=== PATIENT | male | born 1990 | race Caucasian/White ===

== ENCOUNTER 2016-11-14 15:37 | Emergency (ER) | payer OTHER ==
[~2016-11-14] VITALS: Ht 165.1 cm; Wt 86.0 kg
[~2016-11-14 15:37] MED LIST: AMBIEN CR12.5 MG PO; AMBIEN10 MG PO; AMBIEN5 MG PO; ATARAX,VISTARIL25 MG PO; ATARAX,VISTARIL50 MG; ATARAX,VISTARIL50 MG PO; CATAPRES-TTS 11 EACH TD; CATAPRES0.1 MG PO; CLONIDINE HCL0.1 MG PO; CLONIDINE HCL0.2 MG PO; CYCLOBENZAPRINE10 MG PO; DESYREL 150 MG150 MG PO; EFFEXOR XR150 MG PO; EFFEXOR50 MG PO; FLEXERIL10 MG PO; HYDROCODON-ACE1 EAC9 PO; HYDROXYZINE HCL50 MG PO; INDOCIN25 MG PO; KEFLEX500 MG PO; LEVAQUIN500 MG PO; METHADONE1 MG/1 ML PO; METHADOSE10 MG PO; MOTRIN600 MG PO; MOTRIN800 MG PO; NAPROSYN500 MG PO; NAPROXEN500 MG PO; NORCO 10/3251 TABLET PO; NORCO 5/3251 TABLET PO; OXYCODONE-APAP1 EACH PO; PERCOCET 5/31 TABLET PO; PHENERGAN-CODE120 ML PO; PREDNISONE20 MG PO; ROBITUSSIN AC,T10 ML PO; ROZEREM8 MG PO; SEROQUEL100 MG PO; SKELAXIN800 MG PO; SLEEP AID25 M1 PO; SOMA250 MG PO; TOPICAINE113 GM TP; TOPIRAMATE25 MG PO; TRAMADOL HCL50 MG PO; TRAZODONE HCL50 MG PO; TYLENOL WITH C1 EACH PO; ULTRAM50 MG PO; VALIUM5 MG PO; VENLAFAXINE HC150 M1 PO; VENTOLIN HFA18 GM IH; VISTARIL50 MG PO; ZITHROMAX Z-PA250 MG PO; ZOFRAN ODT4 MG PO; ZOLOFT50 MG PO; ZOLPIDEM TARTRA10 MG PO; ambien; effexor; percocet
[2016-11-14 19:12] VITALS: BP 136/111
== END 2016-11-14 19:13 | disposition home or self-care (01) ==
LOC: EME 15:37
DX: F41.9 Anxiety disorder, unspecified (principal); I10 Essential (primary) hypertension; M79.645 Pain in left finger(s); G89.29 Other chronic pain; Z79.891 Long term (current) use of opiate analgesic; F17.200 Nicotine dependence, unspecified, uncomplicated; F32.9 Major depressive disorder, single episode, unspecified
CPT/HCPCS: 90839; 99281; 99284

== ENCOUNTER 2016-12-27 23:32 | Emergency (ER) | payer OTHER ==
[~2016-12-27] VITALS: Ht 165.1 cm; Wt 85.5 kg
[2016-12-27 23:37] VITALS: BP 154/106
== END 2016-12-28 01:53 | disposition left against medical advice (07) ==
LOC: EME 23:32
DX: M79.645 Pain in left finger(s) (principal); G89.29 Other chronic pain; F32.9 Major depressive disorder, single episode, unspecified; F17.200 Nicotine dependence, unspecified, uncomplicated
CPT/HCPCS: 90839; 99281; 99283

== ENCOUNTER 2016-12-29 23:56 | Emergency (ER) | payer OTHER ==
[~2016-12-29] VITALS: Ht 165.1 cm; Wt 95.3 kg
[2016-12-30 00:01] VITALS: BP 176/96
== END 2016-12-30 01:20 | disposition left against medical advice (07) ==
LOC: EME 23:56
DX: M79.646 Pain in unspecified finger(s) (principal); Z53.21 Procedure and treatment not carried out due to patient leaving prior to being seen by health care provider
CPT/HCPCS: 93005

== ENCOUNTER 2017-01-09 20:27 | Emergency (ER) | payer OTHER ==
[~2017-01-09] VITALS: Ht 165.1 cm; Wt 83.5 kg
[2017-01-09] MEDS ORDERED: MOTRIN600 MG PO (22:38)
[2017-01-09 23:45] VITALS: BP 121/79
== END 2017-01-09 23:46 | disposition home or self-care (01) ==
LOC: EME 20:27
DX: S30.810A Abrasion of lower back and pelvis, initial encounter (principal); S50.311A Abrasion of right elbow, initial encounter; S80.211A Abrasion, right knee, initial encounter; S50.811A Abrasion of right forearm, initial encounter; V89.2XXA Person injured in unspecified motor-vehicle accident, traffic, initial encounter; F17.200 Nicotine dependence, unspecified, uncomplicated; F11.21 Opioid dependence, in remission
CPT/HCPCS: 72170; 73080; 73564; 99281; 99285; J1885; J3010

== ENCOUNTER 2017-01-11 18:17 | Emergency (ER) | payer OTHER ==
[~2017-01-11] VITALS: Ht 165.1 cm; Wt 82.4 kg
[2017-01-11] MEDS ORDERED: FARESTON60 MG PO (18:36)
[2017-01-11] MEDS ORDERED: TORADOL10 MG PO (18:43)
[2017-01-11 19:31] VITALS: BP 145/98
== END 2017-01-11 19:31 | disposition home or self-care (01) ==
LOC: EME 18:17
DX: S40.811A Abrasion of right upper arm, initial encounter (principal); S70.211A Abrasion, right hip, initial encounter; S70.311A Abrasion, right thigh, initial encounter; S80.811A Abrasion, right lower leg, initial encounter
CPT/HCPCS: 99281; 99284; J1885

== ENCOUNTER 2017-01-25 13:55 | Emergency (ER) | payer OTHER ==
[~2017-01-25] VITALS: Ht 165.1 cm; Wt 84.0 kg
[~2017-01-25 13:55] MED LIST changes: +FARESTON60 MG PO; +TORADOL10 MG PO
[2017-01-25 16:02] VITALS: BP 114/61
== END 2017-01-25 16:01 | disposition home or self-care (01) ==
LOC: EME 13:55
DX: S50.852A Superficial foreign body of left forearm, initial encounter (principal); W45.8XXA Other foreign body or object entering through skin, initial encounter; F17.200 Nicotine dependence, unspecified, uncomplicated
CPT/HCPCS: 73090; 99281; 99283

== ENCOUNTER 2017-03-02 08:58 | Emergency (ER) | payer OTHER ==
[~2017-03-02] VITALS: Ht 165.1 cm; Wt 79.0 kg
[2017-03-02 09:22] VITALS: BP 154/111
[2017-03-02] MEDS ORDERED: ATARAX,VISTARIL50 MG PO ×2 (09:47→10:43)
[2017-03-02] MEDS ORDERED: DIAZEPAM5 MG PO (09:48)
[2017-03-02] MEDS ORDERED: VENLAFAXINE HC150 M1 PO (09:48)
[2017-03-02] MEDS ORDERED: AMBIEN5 MG PO (10:43)
== END 2017-03-02 10:53 | disposition home or self-care (01) ==
LOC: EME 08:58
DX: Z76.0 Encounter for issue of repeat prescription (principal); I10 Essential (primary) hypertension; F17.200 Nicotine dependence, unspecified, uncomplicated
CPT/HCPCS: 99281; 99283

== ENCOUNTER 2017-03-06 17:25 | Emergency (ER) | payer OTHER ==
[~2017-03-06] VITALS: Ht 165.1 cm; Wt 80.3 kg
[~2017-03-06 17:25] MED LIST changes: +DIAZEPAM5 MG PO
[2017-03-06] MEDS ORDERED: ATARAX,VISTARIL50 MG PO (18:45)
[2017-03-06] MEDS ORDERED: AMBIEN5 MG PO (18:45)
[2017-03-06 18:59] VITALS: BP 157/97
[2017-03-07] MEDS ORDERED: LIBRIUM25 MG PO (03:18)
== END 2017-03-06 19:00 | disposition home or self-care (01) ==
LOC: EME 17:25
DX: Z76.0 Encounter for issue of repeat prescription (principal); G89.29 Other chronic pain; M79.645 Pain in left finger(s); F41.9 Anxiety disorder, unspecified; Z87.898 Personal history of other specified conditions; F17.200 Nicotine dependence, unspecified, uncomplicated
CPT/HCPCS: 99281; 99283

== ENCOUNTER 2017-03-07 02:43 | Emergency (ER) | payer OTHER ==
[~2017-03-07] VITALS: Ht 165.1 cm; Wt 80.4 kg
[2017-03-07] MEDS ORDERED: LIBRIUM25 MG PO (03:18)
[2017-03-07 03:43] VITALS: BP 144/103
== END 2017-03-07 03:45 | disposition home or self-care (01) ==
LOC: EME 02:43
DX: G47.00 Insomnia, unspecified (principal); J45.909 Unspecified asthma, uncomplicated; F90.9 Attention-deficit hyperactivity disorder, unspecified type; F17.200 Nicotine dependence, unspecified, uncomplicated
CPT/HCPCS: 99281; 99284

== ENCOUNTER 2017-04-27 21:34 | Inpatient (IN) | payer OTHER ==
[~2017-04-27] VITALS: Ht 165.1 cm; Wt 76.8 kg
[~2017-04-27 21:34] MED LIST changes: +LIBRIUM25 MG PO
[2017-04-27 22:54] LABS: HEMATOCRIT 40.2 % (38.0-50.0); MCH 27.2 PG (29.0-34.0); MCHC 34.3 G/DL (30.0-36.0); MCV 79.1 FL (86-99); MEAN PLAT.VOLUME 8.4 uM^3 (9.0-12.4); PLATELET COUNT 368 K/uL (156-360); RBC DIS.WIDTH-SD 39.8 % (39-53); RED BLOOD COUNT 5.08 M/uL (4.00-5.50); WHITE BLOOD COUNT 12.6 K/uL (4.1-10.2)
[2017-04-27 23:03] LABS: CHLORIDE 105 mEq/L (99-109); POTASSIUM 3.2 mEq/L (3.7-5.4); SODIUM 144 mEq/L (136-147)
[2017-04-27 23:05] LABS: GLUCOSE 97 mg/dL (70-99)
[2017-04-27 23:06] LABS: ANION GAP 16 MEQ/L (2-14)
[2017-04-27 23:07] LABS: TOTAL BILIRUBIN 0.5 mg/dL (0.0-1.0)
[2017-04-27 23:08] LABS: SERUM ETHYL ALCOHOL < 10 mg/dL
[2017-04-27 23:09] LABS: ALKALINE PHOSPHATASE 74 IU/L (3-129); GFR ESTIMATE (CALCULATED) > 59 mL/min/
[2017-04-27 23:10] LABS: UREA NITROGEN (BUN) 10 mg/dL (9-23)
[2017-04-27 23:39] LABS: ADD MIUA? YES; BILIRUBIN NEGATIVE; BLOOD NEGATIVE; COLOR YELLOW ((YELLOW)); GLUCOSE (STRIP) 50; KETONES 20; LEUKOCYTES NEGATIVE; NITRITE NEGATIVE; PROTEIN (STRIP) 30; SPECIFIC GRAVITY 1.014 (1.000-1.030)
[2017-04-27 23:45] LABS: ADD MEDTOX COMMENT Y; AMPHETAMINE NEGATIVE (500 ng/mL); BACTERIA RARE /HPF; BARBITURATES NEGATIVE (200 ng/mL); BENZODIAZEPINES PRESUMPTIVE POSITIVE (150 ng/mL); COCAINE NEGATIVE (150 ng/mL); EPITHELIAL CELLS NONE SEEN /HPF; INTERNAL CONTROLS VALID? YES; METHADONE NEGATIVE (200 ng/mL); METHAMPHETAMINE NEGATIVE (500 ng/mL); MUCUS 2+ /LPF; OPIATES (MORPHINE) NEGATIVE (100 ng/mL); OXYCODONE NEGATIVE (100 ng/mL); PHENCYCLIDINE NEGATIVE (25 ng/mL); PROPOXYPHENE NEGATIVE (300 ng/mL); RED BLOOD CELLS 0-5 /HPF (0-5); THC CANNABINOIDS PRESUMPTIVE POSITIVE (50 ng/mL); TRICYCLIC ANTIDEPRESSANTS NEGATIVE (300 ng/mL); UCUL ADDED? NO; WHITE BLOOD CELLS 0-5 /HPF (0-5)
[2017-04-28 00:32] LABS: BENZODIAZEPINES, URINE SCREEN POSITIVE (200 ng/mL)
[2017-04-28 00:50] VITALS: BP 142/92
[2017-04-28 07:49] VITALS: BP 107/62
[2017-04-28 15:38] VITALS: BP 119/80
[2017-04-29 07:28] VITALS: BP 123/68
[2017-04-29 15:42] VITALS: BP 136/79
[2017-04-30 07:47] VITALS: BP 108/67
[2017-04-30 15:59] VITALS: BP 145/97
[2017-05-01 07:51] VITALS: BP 131/82
[2017-05-01] MEDS ORDERED: DIAZEPAM5 MG PO (09:43)
[2017-05-01] MEDS ORDERED: HYDROXYZINE PAM50 MG PO (09:43)
[2017-05-01] MEDS ORDERED: VENLAFAXINE HC150 M1 PO (09:43)
== END 2017-05-01 11:30 | disposition home or self-care (01) | DRG 885 ==
LOC: EME 21:34 → 1WEST 23:41 → EDOF 23:41 → 1WEST 04-28 00:40
PROVIDERS: Emergency Medicine
DX: F33.1 Major depressive disorder, recurrent, moderate (principal); F11.20 Opioid dependence, uncomplicated; F12.10 Cannabis abuse, uncomplicated; R45.851 Suicidal ideations; I10 Essential (primary) hypertension; F41.1 Generalized anxiety disorder; Z81.8 Family history of other mental and behavioral disorders; Z82.79 Family history of other congenital malformations, deformations and chromosomal abnormalities
CPT/HCPCS: 80053; 81003; 84999; 85027; 90839; 97150 GO; 97165 GO; 99281; 99285; G0480; Q0177

== ENCOUNTER 2017-11-03 10:34 | Emergency (ER) | payer OTHER ==
[~2017-11-03] VITALS: Ht 165.1 cm; Wt 78.5 kg
[~2017-11-03 10:34] MED LIST changes: +HYDROXYZINE PAM50 MG PO
[2017-11-03 11:05] VITALS: BP 143/100
== END 2017-11-03 13:35 | disposition left against medical advice (07) ==
LOC: EME 10:34
DX: F19.230 Other psychoactive substance dependence with withdrawal, uncomplicated (principal); Z53.21 Procedure and treatment not carried out due to patient leaving prior to being seen by health care provider

== ENCOUNTER 2018-03-28 17:18 | Emergency (ER) | payer OTHER ==
[~2018-03-28] VITALS: Ht 165.1 cm; Wt 72.4 kg
[2018-03-28] MEDS ORDERED: KEFLEX500 MG PO (17:51)
[2018-03-28] MEDS ORDERED: XANAX0.25 MG PO (18:33)
[2018-03-28 19:15] VITALS: BP 140/98
== END 2018-03-28 19:17 | disposition home or self-care (01) ==
LOC: EME 17:18
DX: F41.9 Anxiety disorder, unspecified (principal); R45.4 Irritability and anger; F17.200 Nicotine dependence, unspecified, uncomplicated
CPT/HCPCS: 99281; 99284